=== PATIENT | female | born 1995 | race Two or more races ===

== ENCOUNTER 2017-10-20 00:19 | Emergency (ER) | payer BC ==
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
== END 2017-10-20 02:10 | disposition home or self-care (01) ==
LOC: JP.ED 00:19
DX: F10.129 Alcohol abuse with intoxication, unspecified (principal)
CPT/HCPCS: 99284